=== PATIENT | female | born 1990 ===

== ENCOUNTER 2016-07-29 14:38 | Emergency (ER) | payer BC, MEDICAID ==
[2016-07-29 14:59] VITALS: TEMP 98.3; O2SAT 98; BMI 21.6
--- NOTE | 2016-07-29 15:24 | ED PDOC ---
Arrival/HPI <Salo Hernandez - Last Filed: 07/29/16 17:49> - General Historian: Patient <Richie Quintero - Last Filed: 07/29/16 17:57> - General Chief Complaint: GI Problem Time Seen by Provider: 07/29/16 15:04 - History of Present Illness Narrative History of Present Illness (Text): 07/29/16 15:11 26 y/o female, pmh including UTI (sensitive to the macrobid), nkda, approx. 13 weeks , LMP 04/27/2017, , c/o epigastric pain with vomiting x 3 weeks on and off. Pt. stated that she has epigastric pain, occasionally throat pain from the acid reflux, no vaginal bleeding or discharge, no pelvic or lower abdominal pain, no urinary frequency or urgency, no night sweat, no rash, no other medical or psychological complaints. (Richie Quintero) Past Medical History - Provider Review Nursing Documentation Reviewed: Yes - Cardiac Hx Cardiac Disorders: No - Pulmonary Hx Respiratory Disorders: No - Neurological Hx Neurological Disorder: No - HEENT Hx HEENT Disorder: No - Renal Hx Renal Disorder: No - Endocrine/Metabolic Hx Endocrine Disorders: Yes Hx Hypothyroidism: Yes - Hematological/Oncological Hx Blood Disorders: No - Integumentary Hx Dermatological Disorder: No - Musculoskeletal/Rheumatological Hx Musculoskeletal Disorders: No - Gastrointestinal Hx Gastrointestinal Disorders: No - Genitourinary/Gynecological Hx Genitourinary Disorders: No - Psychiatric Hx Psychophysiologic Disorder: No Hx Substance Use: No <Richie Quintero - Last Filed: 07/29/16 17:57> Family/Social History - Physician Review Nursing Documentation Reviewed: Yes Family/Social History: Unknown Family HX Smoking Status: Never Smoked Hx Alcohol Use: No Hx Substance Use: No <Richie Quintero - Last Filed: 07/29/16 17:57> Allergies/Home Meds <Salo Hernandez - Last Filed: 07/29/16 17:49> <Richie Quintero - Last Filed: 07/29/16 17:57> Allergies/Adverse Reactions: Allergies No Known Allergies Allergy (Verified 07/14/16 14:50) Review of Systems - Review of Systems Constitutional: absent: Fatigue, Fevers ENT: absent: Hearing Changes Respiratory: absent: SOB, Cough Cardiovascular: absent: Chest Pain Gastrointestinal: Abdominal Pain, Nausea, Vomiting Genitourinary Female: absent: Dysuria Musculoskeletal: absent: Arthralgias Skin: absent: Rash, Pruritis Endocrine: absent: Diaphoresis Hemo/Lymphatic: absent: Adenopathy Psychiatric: absent: Anxiety, Depression <Richie Quintero Q - Last Filed: 07/29/16 17:57> Physical Exam Vital Signs Reviewed: Yes Temperature: Afebrile Blood Pressure: Normal Pulse: Regular Respiratory Rate: Normal Appearance: Positive for: Well-Appearing, Non-Toxic, Comfortable Pain Distress: Mild Mental Status: Positive for: Alert and Oriented X 3 - Systems Exam Head: Present: Atraumatic, Normocephalic Pupils: Present: PERRL Extroacular Muscles: Present: EOMI Conjunctiva: Present: Normal Mouth: Present: Moist Mucous Membranes Nose (External): Present: Atraumatic. No: Abrasion, Contusion Nose (Internal): Present: Normal Inspection, No Active Bleeding. No: Rhinorrhea , Septal Hematoma, Epistaxis Neck: Present: Normal Range of Motion Respiratory/Chest: Present: Clear to Auscultation, Good Air Exchange. No: Respiratory Distress, Accessory Muscle Use Cardiovascular: Present: Regular Rate and Rhythm, Normal S1, S2. No: Murmurs Abdomen: Present: Normal Bowel Sounds, Other (negative massey signs). 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 Negative guaiac test. ). No: Occult Blood, Rectal Tenderness, Gross Blood, Melena, Fissures, Nodule/Mass/Lesions Back: Present: Normal Inspection Upper Extremity: Present: Normal Inspection. No: Cyanosis, Edema Lower Extremity: Present: Normal Inspection. No: Edema Neurological: Present: GCS=15, Speech Normal, Motor Func Grossly Intact, Gait Normal, Memory Normal Skin: Present: Warm, Dry, Normal Color. No: Rashes Psychiatric: Present: Alert, Oriented x 3, Normal Insight, Normal Concentration <Richie Quintero Q - Last Filed: 07/29/16 17:57> Vital Signs Temp Pulse Resp BP Pulse Ox 07/29/16 16:12 89 18 124/71 98 07/29/16 14:56 98.3 F 95 H 16 126/79 98 Medical Decision Making <Salo Hernandez - Last Filed: 07/29/16 17:49> - Lab Interpretations I have reviewed the lab results: Yes Interpretation: Abnormal lab values (+UTI) <iRchie Quintero - Last Filed: 07/29/16 17:57> ED Course and Treatment: 07/29/16 15:25 -labs/ua/lipase/type and screen -Guaiac negative, no signs of GI bleed. -observe and reassess 07/29/16 15:55 07/29/16 17:51 -Labs are non-significant except chronic anemia hgb 11.1 from 11.7, asymptomatic , advised eat more red meat, vitally stable. -UA show +leukocyte esterase, reviewed the urine culture and sensitive to the cephalosporin. -Pt. stated that this has been causing her to have morning sickness daily, asking for medication prescripition, will prescribe diclegis since this is class A. -Pt. has no pain , no nausea or vomiting, no vaginal bleeding or pelvic/ abdominal pain, will discharge home. -Discharge home with diclegis, keflex, stay hydrated, drink leigha arlyn and saltine crackers as needed, follow up with your own pmd and obgyn/GI within 2 days, return to the ER for any new or worsening signs or symptoms. (Richie Qunitero) - Lab Interpretations Lab Results: 07/29/16 16:30 07/29/16 16:30 Lab Results 07/29/16 16:30: WBC 6.0 D, RBC 3.96, Hgb 11.1 L, Hct 32.4 L, MCV 81.8, MCH 28.0 , MCHC 34.3, RDW 15.2 H, Plt Count 209, MPV 11.7 H, Gran % 63.0, Lymph % (Auto) 29.0, Mclean % (Auto) 7.0 H, Eos % (Auto) 0.8 L, Baso % (Auto) 0.2, Gran # 3.80, Lymph # 1.8, Mclean # 0.4, Eos # 0.1, Baso # 0.01, Sodium 134, Potassium 3.5 L, Chloride 102, Carbon Dioxide 25, Anion Gap 11, BUN 6 L, Creatinine 0.5, Est GFR ( Amer) > 60, Est GFR (Non-Af Amer) > 60, Random Glucose 74, Calcium 8.8 , Total Bilirubin 0.4, AST 45 H, ALT 38, Alkaline Phosphatase 61, Total Protein 7.6, Albumin 3.8, Globulin 3.8, Albumin/Globulin Ratio 1.0 L, Lipase 48, Beta HCG, Quant 49985.00 H, Blood Type Pending, Antibody Screen Pending, BBK History Checked No verified bt 07/29/16 16:05: Urine Color Yellow, Urine Appearance Clear, Urine pH 7.5, Ur Specific Wilson 1.015, Urine Protein Negative, Urine Glucose (UA) Negative, Urine Ketones Negative, Urine Blood Negative, Urine Nitrate Negative, Urine Bilirubin Negative, Urine Urobilinogen 0.2, Ur Leukocyte Esterase Trace H, Urine RBC 0 - 2, Urine WBC 1 - 3, Ur Epithelial Cells 1 - 3, Urine Bacteria Few - Medication Orders Current Medication Orders: Discontinued Medications Sodium Chloride (Sodium Chloride 0.9%) 1,000 mls @ 999 mls/hr IV .Q1H1M STA Stop: 07/29/16 16:26 Last Admin: 07/29/16 16:30 Dose: 999 MLS/HR eMAR Start Stop Document 07/29/16 16:30 RADHA (Rec: 07/29/16 16:38 RADHA [id number]) Intravenous Solution Start Date 07/29/16 Start Time 16:30 End Date 07/29/16 End time 17:30 Total Infusion Time 60 - PA / [employer] / Resident Statement JAY has reviewed & agrees with the documentation as recorded. <Salo Hernandez - Last Filed: 07/29/16 17:49> - PA / [employer]SE [employer]TER / Resident Statement JAY has reviewed & agrees with the documentation as recorded. <Richie Quintero - Last Filed: 07/29/16 17:57> Disposition/Present on Arrival <Salo Hernandez - Last Filed: 07/29/16 17:49> - Present on Arrival Any Indicators Present on Arrival: No History of DVT/PE: No History of Uncontrolled Diabetes: No Urinary Catheter: No History of Decub. Ulcer: No History Surgical Site Infection Following: None - Disposition Have Diagnosis and Disposition been Completed?: Yes Disposition Time: 15:25 Patient Plan: Discharge <Richie Quintero - Last Filed: 07/29/16 17:57> - Disposition Diagnosis: Nausea and vomiting during , UTI (urinary tract infection), Anemia Disposition: HOME/ ROUTINE Condition: IMPROVED Additional Instructions: Discharge home with misti kunz, stay hydrated, drink leigha arlyn and saltine crackers as needed, follow up with your own pmd and obgyn/GI within 2 days, return to the ER for any new or worsening signs or symptoms. Prescriptions: Doxylamine/Pyridoxine HCl [Tiana Del Valle 10-10 mg Tablet] 1 each PO BID #8 tablet. Cephalexin [Keflex] 500 mg PO TID #21 capsule Referrals: Lita Quispe DO [Primary Care Provider] - Follow up with primary Phill NOGUERA,MD Paolo [Medical Doctor] - Follow up with primary Dulce Leahy MD [Medical Doctor] - Follow up with primary Forms: WORK NOTE
[2016-07-29] MEDS ORDERED: Sodium Chloride 0.9% 1,000 ML IV STA (15:26)
[2016-07-29 16:18] LABS: PH,URINE 7.5 (4.7-8.0); URINE APPEARANCE CLEAR (CLEAR); URINE BILIRUBIN NEGATIVE (NEGATIVE); URINE BLOOD NEGATIVE (NEGATIVE); URINE COLOR YELLOW (YELLOW); URINE GLUCOSE (UA) NEGATIVE (NEGATIVE); URINE KETONE NEGATIVE (NEGATIVE); URINE LEUKOCYTE ESTERASE TRACE Leu/uL (NEGATIVE); URINE PROTEIN NEGATIVE mg/dL (<30 mg/dL); URINE UROBILINOGEN 0.2 E.U./dL (<1 E.U./dL)
[2016-07-29 16:20] VITALS: BP 124/71; PULSE 89; RESP 18
[2016-07-29 16:25] LABS: URINE BACTERIA FEW (NEG); URINE RBC 0 - 2 /hpf (0-2)
[2016-07-29 16:45] LABS: ADD MANUAL DIFF? NO
[2016-07-29 17:02] LABS: ALKALINE PHOSPHATASE 61 U/L (38-133); ALT/SGPT 38 U/L (7-56); AST/SGOT 45 U/L (15-39); BILIRUBIN,TOTAL 0.4 mg/dL (0.2-1.3); BLOOD UREA NITROGEN 6 mg/dL (7-21); CALCIUM 8.8 mg/dL (8.4-10.5); CARBON DIOXIDE 25 mmol/L (21-33); CHLORIDE 102 mmol/L (98-107); GFR AFRICAN-AMERICAN > 60; GLUCOSE,RANDOM 74 mg/dL (70-110); LIPASE 48 U/L (23-300); POTASSIUM 3.5 mmol/L (3.6-5.0); SODIUM 134 mmol/L (132-148); TOTAL PROTEIN 7.6 g/dL (5.8-8.3)
[2016-07-29 17:39] LABS: BASO # 0.01 K/mm3 (0.0-2.0); BASO % 0.2 % (0.0-3.0); EOS # 0.1 (0.0-0.7); EOS % 0.8 % (1.5-5.0); HEMATOCRIT 32.4 % (36.0-48.0); LYMPH # 1.8 (1.2-3.4); MEAN CELL VOLUME 81.8 fL (80.0-105.0); MEAN CORPUSCULAR HGB CONC 34.3 g/dl (31.0-37.0); MEAN PLATELET VOLUME 11.7 fl (7.0-11.0); MONO # 0.4 (0.1-0.6); PLATELET COUNT 209 10^3/uL (120.0-450.0); RED CELL DISTRIBUTION WIDTH 15.2 % (11.5-14.5)
== END 2016-07-29 18:01 | disposition home or self-care (01) ==
LOC: ED 14:38
DX: O23.41 Unspecified infection of urinary tract in pregnancy, first trimester (principal); Z3A.13 13 weeks gestation of pregnancy; R11.2 Nausea with vomiting, unspecified
CPT/HCPCS: 80053; 81001; 83690; 84702; 85025; 86850; 86900; 96360; 99282; J7040